=== PATIENT | female | born 1995 | race Caucasian/White ===

== ENCOUNTER 2017-08-25 21:42 | Emergency (ER) | payer MEDICAID ==
[~2017-08-25] VITALS: Ht 154.9 cm; Wt 72.6 kg
[2017-08-25 21:45] VITALS: BP 140/87
[2017-08-25 23:55] LABS: HEMATOCRIT 42.1 % (36-48); HEMOGLOBIN 13.8 g/dL (12.0-16.0); MEAN CORPUSCULAR HEMOGLOBIN 26 pg (27-31); MEAN CORPUSCULAR HGB CONC 33 g/dL (33-37); MEAN CORPUSCULAR VOLUME 80 fL (80-94); PLATELET COUNT (AUTO) 294 K/uL (140-450); RED BLOOD CELL COUNT(AUTO) 5.24 MIL/uL (4.20-5.40); RED CELL DISTRIBUTION WIDTH 13.4 % (11.6-13.7)
[2017-08-26 00:04] LABS: ANION GAP 12.5 (8-16); CARBON DIOXIDE 28.7 mmol/L (21-32); CREATININE 0.9 mg/dL (0.6-1.3); POTASSIUM 3.2 mmol/L (3.5-5.1)
[2017-08-26 00:06] LABS: LYMPHOCYTES % (MANUAL) 10 % (20-46); MONOCYTES % (MANUAL) 8 % (5-12); WHITE BLOOD COUNT (AUTO) 8.3 K/uL (4.8-10.8)
[2017-08-26 00:12] LABS: TOTAL BILIRUBIN 0.3 mg/dL (0.0-1.0)
--- NOTE | 2017-08-26 00:28 | NUR ---
TO ER BED 6
--- NOTE | 2017-08-26 00:37 | NUR ---
22/F BIB S/O C/O 4/10 EPIGASTRIC PAIN, NAUSEA/VOMITING AND HEADACHE X 2 DAYS. NO PMH. PT TOOK IBUPROFEN AND PEPTO BISMO AT HOME, PT REPORTED RELIEF. SOFT, ROUND ABDOMEN, EPIGASTRIC TENDER TO TOUCH, BOWEL SOUNDS ACTIVE X 4 QUADRANT. LMP 2 YEARS AGO. SKIN IS PINK/WARM/DRY; AAOX4 WITH EVEN AND STEADY GAIT; LUNGS CLEAR BL; HR EVEN AND REGULAR; PT DENIES ANY FEVER, CP, SOB, OR COUGH AT THIS TIME; PATIENT POSITIONED FOR COMFORT; HOB ELEVATED; BEDRAILS UP X2; BED DOWN. ER MD MADE AWARE OF PT STATUS.
[2017-08-26] MEDS ORDERED: ONDANSETRON 4 MG/2 ML VIAL IVP ONE (00:40)
[2017-08-26] MEDS ORDERED: NACL 0.9% 1,000 ML IV ONE (00:40)
--- NOTE | 2017-08-26 00:40 | NUR ---
Patient being evaluated by DR. TABOR at bedside.
[2017-08-26] MEDS ORDERED: KETOROLAC 30 MG/ML VIAL IVP ONE (01:00)
[2017-08-26 02:07] VITALS: BP 98/63
--- NOTE | 2017-08-26 02:07 | NUR ---
Patient discharged with v/s stable. Written and verbal after care instructions given and explained. Patient alert, oriented and verbalized understanding of instructions. Ambulatory with steady gait. All questions addressed prior to discharge. ID band removed. Patient advised to follow up with PMD. Rx of ZOFRAN ODT 4 MG given. Patient educated on indication of medication including possible reaction and side effects. Opportunity to ask questions provided and answered.
== END 2017-08-26 02:07 | disposition home or self-care (01) ==
LOC: MED 21:42
DX: A08.4 Viral intestinal infection, unspecified (principal); I10 Essential (primary) hypertension
CPT/HCPCS: 36415; 80053; 81002; 81025; 85025; 96361; 96374; 96375; 99284; J1885; J2405; J7030

== ENCOUNTER 2019-12-23 12:58 | Emergency (ER) | payer SELFPAY ==
[~2019-12-23] VITALS: Ht 154.9 cm; Wt 72.6 kg
[2019-12-23 13:18] VITALS: BP 107/75
--- NOTE | 2019-12-23 13:34 | NUR ---
PT AMBULATED TO BED
--- NOTE | 2019-12-23 13:46 | NUR ---
24 Y/F PRESENTS TO ED FOR CONTACT STUCK IN L EYE X 2 DAY. PT REPORTS BLURRED VISION. PT TRIED OTC VISINE EYE DROPS. EYE APPEARS RED AND IRRITATED. PT A&O X 4, LUNGS CLEAR, S1S2, SKIN WARM AND DRY TO TOUCH, ABDOMEN SOFT AND NON DISTENDED. DENIES URINARY FREQUENCY. NKDA
--- NOTE | 2019-12-23 13:47 | NUR ---
PT STANDING BY SINK FLUSHING EYE WITH WATER.
[2019-12-23] MEDS ORDERED: TETRACAINE HCL/PF 0.5% OPTH 4 ML BTL OP ONE (14:55)
--- NOTE | 2019-12-23 15:09 | NUR ---
OPTHALMIC TETRACAINE AT BEDSIDE.
--- NOTE | 2019-12-23 15:28 | NUR ---
DR POOLE AT BEDSIDE FOR L EYE PROCEDURE WITH SLIT LAMP
[2019-12-23] MEDS ORDERED: FLUORESCEIN OPTH STRIP 1 MG ONE (15:30)
[2019-12-23] MEDS ORDERED: FLUORESCEIN OPTH STRIP 1 MG OP ONE ×2 (15:30→15:35)
[2019-12-23 16:10] VITALS: BP 116/74
== END 2019-12-23 16:10 | disposition home or self-care (01) ==
LOC: MED 12:58
DX: T15.92XA Foreign body on external eye, part unspecified, left eye, initial encounter (principal); X58.XXXA Exposure to other specified factors, initial encounter; Y93.89 Activity, other specified; Y92.89 Other specified places as the place of occurrence of the external cause; Y99.8 Other external cause status
CPT/HCPCS: 99283

== ENCOUNTER 2022-09-29 19:37 | Emergency (ER) | payer OTHER ==
[~2022-09-29] VITALS: Ht 154.9 cm; Wt 81.6 kg
[2022-09-29 19:44] VITALS: BP 114/56
--- NOTE | 2022-09-29 19:47 | NUR ---
TO BED AMBULATORY
--- NOTE | 2022-09-29 20:45 | NUR ---
PT TO BED #11
--- NOTE | 2022-09-29 21:10 | NUR ---
ETHAN BRIDGES ASSESSING PT
--- NOTE | 2022-09-29 21:11 | NUR ---
BIB SELF BIB SELF C/C 08/29 EPIGASTRIC PAIN XTODAY. REPORTS +N/V/D EPISODES. PATIENT DENIES EATING ANY NEW FOOD AT THIS TIME. REPORTS TAKING MEDICATION FOR STOMACH PAIN- UNKNOWN NAME- NO RELIEF. DENIES PMHX, RX, ALLERGIES
[2022-09-29] MEDS ORDERED: FAMOTIDINE 20 MG/2 ML VIAL IVP ONE (21:15)
[2022-09-29] MEDS ORDERED: ONDANSETRON 4 MG/2 ML VIAL IVP ONE (21:15)
[2022-09-29] MEDS ORDERED: NACL 0.9% 1,000 ML IV ONE (21:15)
--- NOTE | 2022-09-29 21:30 | NUR ---
IV ESTABLISHED 18G L AC. BLOOD COLLECTED AND HANDED TO LAB. IVF AND MEDS ADMINISTERED ORDERED.
[2022-09-29 21:52] LABS: BASOPHILS % (AUTO) 0.2 % (0.0-2.0); EOSINOPHILS # (AUTO) 0.1 K/uL (0-0.4); EOSINOPHILS % (AUTO) 0.6 % (0.0-4.0); HEMATOCRIT 36.9 % (36-48); HEMOGLOBIN 12.1 g/dL (12.0-16.0); LYMPHOCYTES # (AUTO) 1.2 K/uL (2.5-16.5); LYMPHOCYTES % (AUTO) 10.3 % (20.5-51.1); MEAN CORPUSCULAR HEMOGLOBIN 26 pg (27-31); MEAN CORPUSCULAR HGB CONC 33 g/dL (33-37); MEAN CORPUSCULAR VOLUME 80.3 fL (80-94); MONOCYTES # (AUTO) 0.9 K/uL (0.8-1.0); MONOCYTES % (AUTO) 7.7 % (1.7-9.3); NEUTROPHILS # (AUTO) 9.6 K/uL (1.8-7.7); NEUTROPHILS % (AUTO) 81.2 % (42.2-75.2); PLATELET COUNT (AUTO) 356 K/uL (140-450); RED BLOOD CELL COUNT(AUTO) 4.59 MIL/uL (4.20-5.40); RED CELL DISTRIBUTION WIDTH 14.1 % (11.6-13.7); WHITE BLOOD COUNT (AUTO) 11.8 K/uL (4.8-10.8)
[2022-09-29 22:11] LABS: ALBUMIN 3.7 g/dL (3.4-5.0); ANION GAP 9.6 (8-16); CARBON DIOXIDE 29.2 mmol/L (21-32); CREATININE 0.7 mg/dL (0.6-1.3); POTASSIUM 3.8 mmol/L (3.5-5.1); TOTAL BILIRUBIN 0.4 mg/dL (0.0-1.0)
--- NOTE | 2022-09-29 22:16 | NUR ---
OUMAR STATED THAT HER PAIN HAS SUBSIDED WITH THE MEDS. DENIES NAUSEA.
[2022-09-29] MEDS ORDERED: KETOROLAC 15 MG/ML VIAL IVP ONE (23:05)
[2022-09-30] MEDS ORDERED: FAMO-90 PO (00:20)
[2022-09-30] MEDS ORDERED: ONDA-188 PO (00:20)
[2022-09-30 00:37] VITALS: BP 108/62
--- NOTE | 2022-09-30 00:37 | NUR ---
Patient discharged with v/s stable. Written and verbal after care instructions given and explained. Patient alert, oriented and verbalized understanding of instructions. Ambulatory with steady gait. All questions addressed prior to discharge. ID band removed. Patient advised to follow up with PMD. Rx of PEPCID, ZOFRAN given. Patient educated on indication of medication including possible reaction and side effects. Opportunity to ask questions provided and answered.
== END 2022-09-30 00:37 | disposition home or self-care (01) ==
LOC: MED 19:37
DX: K29.00 Acute gastritis without bleeding (principal); R11.2 Nausea with vomiting, unspecified; R19.7 Diarrhea, unspecified
CPT/HCPCS: 36415; 80053; 81025; 83690; 85025; 96361; 96374; 96375; 99284; J1885; J2405; J3490; J7030